=== PATIENT | female | born 1965 | race Caucasian/White ===

== ENCOUNTER 2023-01-12 01:02 | Inpatient (IN) | payer OTHER ==
[~2023-01-12] VITALS: Ht 167.6 cm; Wt 78.0 kg
[2023-01-12 01:10] VITALS: BP_SYST 134
[2023-01-12] MEDS ORDERED: ASPIRIN 81 MG TAB.CHEW PO ONE (01:30)
[2023-01-12] MEDS ORDERED: MORPHINE 4 MG INJ. 4 MG/ML VIAL IVP ONE ×2 (01:45→02:30)
[2023-01-12] MEDS ORDERED: ONDANSETRON HCL 4 MG/2 ML VIAL IVP ONE (01:45)
[2023-01-12 01:49] LABS: BASOPHILS # (AUTO) 0.1 K/uL (0.0-0.2); EOSINOPHILS # (AUTO) 0.2 K/uL (0.0-0.4); EOSINOPHILS % (AUTO) 2.8 % (0.0-4.0); HEMATOCRIT 39.9 % (36-48); HEMOGLOBIN 13.3 g/dL (12.0-16.0); LYMPHOCYTES # (AUTO) 2.8 K/uL (1.0-5.5); LYMPHOCYTES % (AUTO) 34.6 % (20.5-51.5); MEAN CORPUSCULAR HEMOGLOBIN 30 pg (27-31); MEAN CORPUSCULAR HGB CONC 33 % (32-36); MEAN CORPUSCULAR VOLUME 89 fL (79.0-98.0); MONOCYTES # (AUTO) 0.6 K/uL (0.0-1.0); MONOCYTES % (AUTO) 7.8 % (1.7-9.3); NEUTROPHILS # (AUTO) 4.3 K/uL (1.8-7.7); NEUTROPHILS % (AUTO) 53.8 % (40.0-70.0); PLATELET COUNT (AUTO) 373 K/uL (130-430); RED CELL DISTRIBUTION WIDTH 14.8 % (9.0-15.0); WHITE BLOOD COUNT (AUTO) 8.1 K/uL (4.8-10.8)
[2023-01-12] MEDS ORDERED: KETOROLAC TROMETHAMINE 30 MG VIAL IVP ONE (02:00)
[2023-01-12] MEDS ORDERED: KETOROLAC TROMETHAMINE 30 MG VIAL ONE (02:03)
[2023-01-12 02:16] LABS: ANION GAP 6 (5-15); CHLORIDE 104 mmol/L (98-107); CREATININE 1.02 mg/dL (0.55-1.30); GLUCOSE 109 mg/dL (70-99); UREA NITROGEN, BLOOD 18 mg/dL (8-21)
[2023-01-12 02:22] LABS: ALANINE AMINOTRANSFERASE 29 U/L (12-78); ALBUMIN 3.6 g/dL (3.4-4.8); ASPARTATE AMINOTRANSFERASE 16 U/L (10-37); LIPASE 169 U/L (73-393); TOTAL BILIRUBIN 0.7 mg/dL (0.0-1.0)
[2023-01-12 02:28] LABS: GFR AFRICAN AMERICAN 72 mL/min (>90)
[2023-01-12] MEDS ORDERED: PANTOPRAZOLE SODIUM 40 MG TAB PO ONE ×2 (10:30→12:52)
[2023-01-12 13:25] VITALS: BP_SYST 112
[2023-01-12 15:55] VITALS: BP_SYST 121
[2023-01-12 18:58] VITALS: BP_SYST 112
[2023-01-12 19:35] VITALS: BP_SYST 124
[2023-01-13 00:59] VITALS: BP_SYST 97
[2023-01-13 08:20] LABS: ALBUMIN 2.9 g/dL (3.4-4.8); CALCIUM 8.8 mg/dL (8.4-11.0); CREATININE 0.79 mg/dL (0.55-1.30)
[2023-01-13] MEDS ORDERED: PANTOPRAZOLE SODIUM 40 MG TAB PO SCH (09:00)
[2023-01-13 11:37] VITALS: BP_SYST 100
[2023-01-13] MEDS ORDERED: PRO40 PO (13:16)
[2023-01-13] MEDS ORDERED: MAG-AL HYDROX/SIMETH 30 ML UDC PO ONE (14:45)
[2023-01-13 15:39] VITALS: BP_SYST 105
== END 2023-01-13 16:45 | disposition home or self-care (01) | DRG 392 ==
LOC: SED 01:02 → STU 04:40
PROVIDERS: ADMIT Internal Medicine; ATTEND Internal Medicine
DX: R10.13 Epigastric pain (principal); R07.89 Other chest pain; Z20.822 Contact with and (suspected) exposure to COVID-19; F10.20 Alcohol dependence, uncomplicated; Z82.49 Family history of ischemic heart disease and other diseases of the circulatory system; Z98.891 History of uterine scar from previous surgery
CPT/HCPCS: 36415; 71045; 71275; 72191; 74175; 76376; 80053; 80061; 82150; 83690; 83735; 83880; 84484; 85025; 93005; 93306; 99285; G0378; J1885; J2270; J2405; Q9967